=== PATIENT | female | born 1965 ===

== ENCOUNTER 2025-06-04 11:03 | Outpatient (AMB) | payer BC, SELFPAY ==
--- NOTE | 2025-06-04 11:14 | A.OFFVIS_ITS ---
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 She has longstanding history of palpitations. In 2014 she had echocardiography done at [facility] which was normal. She also had a Holter monitor in 2019 which was 24 hour Holter with [facility] which was negative for any arrhythmia. There were some premature atrial and ventricular complexes noted. From time to time s he gets tachycardia which is sudden onset. She is saying that this is usually self-limiting and breaks on its own. She has noticed her heart rates as high as 200s. She has a Rapportivedia device and has been trying to record some rhythms and a few times the reading was that she had atrial fibrillation although there are some recordings there labeled as potential AFib but there have a lot of artifact and appear to be all sinus tachycardia. She had event monitor in January through her primary care physician which we will get the records for. She is saying that she gets once a year episodes. She has taken metoprolol as needed before. She drinks 2 cups of coffee. No stimulant use otherwise. No syncope or chest discomfort. PENDING SALE TO [facility] Family History (Updated 06/04/25 @ 11:20 by Chika Felder CMA) Paternal Grandmother Heart attack Mother No problems noted. Social History (Updated 06/04/25 @ 11:20 by Chika Felder CMA) Alcohol intake: never Patient Tobacco Use Status: Never used Tobacco Review of Systems Const Denies chills, Denies fatigue, Denies fever(s), Denies frequent falls, Denies weakness, Denies weight gain and Denies weight loss ENT Denies dizziness Card Denies chest pain, Denies leg edema, Denies lightheadedness, Denies palpitations , Denies dyspnea, Denies dyspnea on exertion and Denies orthopnea Resp Denies cough, Denies dyspnea and Denies dyspnea on exertion GI Denies bloating and Denies change in bowel habits Musc Denies muscle weakness, Denies numbness and Denies tingling Neuro Denies dizziness, Denies frequent falls, Denies numbness, Denies tingling and Denies weakness Endo Denies fatigue and Denies palpitations Physical Exam Vital Signs: Last Vital Signs Pulse 83 06/04/25 11:18 BP 134/82 06/04/25 11:18 GENERAL APPEARANCE: in no acute distress, pleasant. NECK: no carotid bruit, no jugular venous distention. SKIN: no suspicious lesions, warm and dry. HEART: no murmurs, regular rate and rhythm. LUNGS: clear to auscultation bilaterally. ABDOMEN: soft, nontender. EXTREMITIES: no edema. PERIPHERAL PULSES: equal. NEUROLOGIC: No gross deficits, AAO X 3 Office Procedures EKG Details: Sinus rhythm 83 beats per minute, low voltage, QTC 415 milliseconds. [id number], Complete Assessment & Plan Assessment & Plan (1) Tachycardia: Code(s): R00.0 - Tachycardia, unspecified Category: Medical Plan [age] year female with longstanding history of palpitations and tachycardia. These happen approximately once a year and are quite infrequent. Clinical story sounds like supraventricular tachycardia. She previously had structurally normal heart. Previous monitoring also did not show any significant arrhythmia. She did a event monitor in January 2025. We will get records from her primary care physician as well as from [facility]. I have advised her to start taking atenolol 25 mg daily. It has the lowest side effect profile so she can try atenolol. In terms of further testing currently we discussed not to do any further testing. I have taught her vagal maneuvers and she will try to put cold water on her face/bear down in case she gets the tachycardia again. If she has recurrent episodes then we can refer her to EP. I discussed this with her but currently she feels these symptoms are quite infrequent. Thank you for allowing me to participate in the care of your patient. Please feel free to contact me if you have any questions. Medications: New atenolol 25 mg PO DAILY 30 tabs 3RF Coding Level of Care Code New Pt Level 4 (40423) Diagnoses Tachycardia R00.0 CPT Codes EKG - CPT: 36493-[id number], Complete ([id number])
[2025-06-04 11:18] VITALS: BP 134/82; PULSE 83
--- OUTSIDE RECORDS SUMMARY | 2025-06-04 13:10 | XMS_ITS | Clinical Summary ---
Author Organization [facility] Address [address] [place] [address] Care Team Providers Care Commercial Reporter Name Role Phone RobiYissel JACKELIN Primary Care Provider [phone] Allergies No known active allergies Medications No known medications Active Problems Problem Noted Date Diagnosed Date Cold intolerance 05/22/2013 Palpitations 05/22/2013 Dizziness 10/23/2012 Pain, joint, shoulder 10/23/2012 Anxiety 10/23/2012 Adjustment disorder 10/23/2012 Tobacco use 10/23/2012 Social History Tobacco Use Types Packs/Day Years Used Date Smoking Tobacco: Former Comments:: Comments Unknown Sex and Gender Information Value Date Recorded Sex Assigned at Not on file Legal Sex Female 2:33 AM EDT Gender Identity Not on file Sexual Orientation Not on file Last Filed Vital Signs Vital Sign Reading Time Taken Comments Blood Pressure 106/69 03/05/2015 2:14 PM EDT Pulse 86 03/05/2015 2:13 PM EDT Temperature 37.1 C (98.7 F) 05/22/2013 2:31 PM EST Respiratory Rate - - Oxygen Saturation 96% 03/05/2015 2:13 PM EDT Inhaled Oxygen Concentration - - Weight - - Height 165.1 cm (5' 5 ) 05/22/2013 2:31 PM EST Body Mass Index - - Plan of Treatment Health Maintenance Due Date Last Done Comments Cervical Cancer Screening 1967 Cologuard 1967 Colon Cancer Screening 1967 Colonoscopy 1967 FOBT / Fit Test 1967 HIV Screening 1967 HPV and Pap Smear 1967 Pap Smear 1967 Sigmoidoscopy 1967 Hepatitis B Vaccines (1 of 3 - 19+ 3-dose series) 09/01 Mammogram 04/16/2014 04/16/2012 Pneumococcal Vaccine: 50+ Years (1 of 1 - PCV) 018 Zoster Vaccines (2 of 2) 06/17/2022 04/22/2022 Alcohol/Substance Use Screening 07/03/2024 Influenza Vaccine (#1) 2025 DTaP,Tdap,and Td Vaccines (2 - Td or Tdap) 01/02/2029 01/02/2019 Procedures * Due to [place] [employer] law, this organization might not be sharing negative HIV tests. Procedure Name Priority Date/Time Associated Diagnosis Comments MAMMOGRAPHY Routine 04/16/2012 6:10 PM EDT from Last 3 Months or Most Recently Relevant to Health Maintenance Results * Due to [place] [employer] law, this organization might not be sharing negative HIV tests. * MAMMOGRAPHY (04/16/2012 6:10 PM EDT) Mammogram negative [facility] Anatomical Region Laterality Modality Other 04/16/2012 6:10 PM EDT us Historical Conversion Provider HEALTH MAINTENANC E Final Result from Last 3 Months or Most Recently Relevant to Health Maintenance Insurance BCBS OUT OF STATE PPO Care Teams Commercial Reporter Relationship Specialty Start Date End Date Yissel Rosenbaum NP [facility] [place] [address] PCP - General Family Medicine 04/12/22
--- OUTSIDE RECORDS SUMMARY | 2025-06-04 13:10 | XMS_ITS | Clinical Summary ---
Author Organization [facility] Address [address] [place] [address] Care Team Providers Care Spring Forger Name Role Phone Unknown Primary Care Provider [phone] Allergies No known active allergies Medications amoxicillin-clav ulanate (AUGMENTIN) 875-125 MG per tabletIndication s:Acute bacterial sinusitis Take 1 tablet by mouth 2 (two) times a day. 20 tablet 02/15/2022 Active Social History Tobacco Use Types Packs/Day Years Used Date Smoking Tobacco: Never Assessed Comments Unknown Sex and Gender Information Value Date Recorded Sex Assigned at Not on file Legal Sex Female 12:24 PM EDT Gender Identity Not on file Sexual Orientation Not on file Last Filed Vital Signs Vital Sign Reading Time Taken Comments Blood Pressure 135/92 02/15/2022 2:13 PM EDT Pulse 93 02/15/2022 2:13 PM EDT Temperature 36.8 C (98.3 F) 02/15/2022 2:13 PM EDT Respiratory Rate - - Oxygen Saturation 97% 02/15/2022 2:13 PM EDT Inhaled Oxygen Concentration - - Weight - - Height - - Body Mass Index - - Plan of Treatment Health Maintenance Due Date Last Done Comments Hepatitis C Virus Screening 1967 HIV Screening 09/20/1980 DTaP/Tdap/Td Vaccines (1 - Tdap) 09/20/1986 Hepatitis B Vaccines (1 of 3 - 19+ 3-dose series) 09/01 Pap Smear (Ages 21-65) 09/20/1988 Mammogram 2007 Colonoscopy 09/20/2012 Pneumococcal Vaccines 50+ (1 of 1 - PCV) 09/20/2017 Zoster (Shingles) Vaccine (1 of 2) 09/20/2017 Influenza Vaccine 01/31/2025 COVID-19 Vaccine (1 - 2024-25 season) 2025 RSV Vaccine 50 years and old er and Patients (1 - 1-dose 75+ series) 09/20/2042 Insurance BLUE CROSS OUT [facility] - [facility] Care Teams Spring Forger Relationship Specialty Start Date End Date Unknown Unknow Provider Address PCP - General 07/03/21
--- OUTSIDE RECORDS SUMMARY | 2025-06-04 13:10 | XMS_ITS | Clinical Summary ---
Author Organization [place] [address] [facility] Address [address] [place] [address] Phone Care Team Providers Care Maintenance Helper Name Role Phone Physician, No Pcp Primary Care Provider Unavaila ble Allergies No known active allergies Medications norethindrone (VIRGILIO,DERRICK,HE ATHER,MICRONOR) 0.35 mg tablet TAKE 1 TABLET BY MOUTH EVERY DAY 84 tablet 1 12/24/2024 Active estradioL (ESTRACE) 1 mg tablet Take 1 tablet (1 mg total) by mouth. at bedtime. Active metoprolol tartrate (LOPRESSOR) 25 mg tablet Take 1 tablet (25 mg total) by mouth 2 (two) times a day. Active Active Problems Problem Noted Date Diagnosed Date Atrial fibrillation ([facility] V24, [facility] V28) 0 01/30/2025 Hepatic cyst 01/30/2025 Cold intolerance 05/22/2013 Palpitations 05/22/2013 Adjustment disorder 10/23/2012 Anxiety 10/23/2012 Dizziness 10/23/2012 Pain, joint, shoulder 10/23/2012 Social History Tobacco Use Types Packs/Day Years Used Date Smoking Tobacco: Never Smokeless Tobacco: Never Alcohol Use Standard Drinks/Week Comments Not Currently 0 (1 standard drink = 0.6 oz pur e alcohol) Housing Instability Answer Date Recorde d Are you worried that in the next 2 months you may not have stable housing? No 01/29/2025 Food Access & Nutrition Answer Date Rec orded Do you have access to a vari ety of food including fruits and vegetables? Yes 01/29/2025 Access to Healthcare Answer Date Record ed Within the last 3 months, ho w many times did you visit the emergency department for your medical care? 0 01/29/2025 Health Literacy Answer Date Recorded How often do you need to hav e someone help you when you read instructions, pamphlets, or other written material from your doctor or pharmacy? Never 01/29/2025 Caregiver: How often do you need to have someone help you when you read instructions, pamphlets, or other written material from your doctor or pharmacy? Not on file 01/29/2025 Financial Risk Answer Date Recorded How hard is it for you to pa y for the very basics like food, housing, medical care, and air conditioning / heating? Patient declined 01/29/2025 Transportation Answer Date Recorded Has the lack of transportati on kept you from meetings, work, or from getting things needed for daily living? No Has the lack of transportati on kept you from medical appointments or from getting medications? No 01/29/2025 Social Isolation Answer Date Recorded How often do you feel lonely or isolated from th ose around you? Never 01/29/2025 Food Risk Answer Date Recorded Within the past 12 months we worried whether our food would run out before we got money to buy more. Never true 01/29/2025 Within the past 12 months th e food we bought just didn't last and we didn't have money to get more. Never true 01/29/2025 Dependent Care Answer Date Recorded Do you need help finding or paying for care for your loved ones. For example, salesperson children's shoes or elderly care for an older adult? No 01/29/2025 Education Answer Date Recorded Do you think completing more education or training, like finishing a GED, going to college, or learning a trade, would be helpful for you? Patient declined 01/29/2025 Employment and Income Answer Date Recor ded During the last four weeks, have you been actively looking for work? Patient declined 01/29/2025 Living Situation Answer Date Recorded What is your living situation? Unrecognized valu e 01/29/2025 Comments No Sex and Gender Information Value Date Recorded Sex Assigned at Not on file Legal Sex Female 8:44 AM EST Gender Identity Not on file Sexual Orientation Not on file Obstetrics History Para Term AB IAB SAB Ectopic Multiple Livin g Live Births 2 2 2 Date Outcome GA Total Labor Labor/2nd/3rd Weight Sex Type Anes PTL Debbie A1 A5 Name Clin Term M Vag-Spo nt Term F Vag-Spo nt Last Filed Vital Signs Vital Sign Reading Time Taken Comments Blood Pressure 140/74 01/30/2025 9:47 AM EDT Dec lined Wt Pulse 105 01/30/2025 9:47 AM EDT Temperature - - Respiratory Rate 16 01/30/2025 9:47 AM EDT Oxygen Saturation - - Inhaled Oxygen Concentration - - Weight - - Height 167.6 cm (5' 6 ) 01/30/2025 9:47 AM EDT Body Mass Index - - Plan of Treatment Health Maintenance Due Date Last Done Comments Colorectal Cancer Screening: Colonoscopy 1967 Hepatitis B Vaccines (1 of 3 - 19+ 3-dose series) 09/20/1986 Pneumococcal Vaccine: 50+ Years (1 of 1 - PCV) 09/20/2017 HIV Screening 08/02/2023 Hepatitis C Screening 08/02/2023 COVID-19 Vaccine ( - 2024-2 6 season) 2025 Influenza Vaccine (#1) 2025 Social Influencers of Health Screening 01/29/2026 01/29/2025 Breast Cancer Screening 02/04/2026 02/05/20 24, 02/05/2024, 04/11/2019 Cervical Cancer Screening: P ap Smear 10/22/2026 10/23/2023 DTaP,Tdap,and Td Vaccines (2 - Td or Tdap) 01/02/2029 01/02/2019 RSV Immunization Adult Patients (1 - 1-dose 75+ series) 09/20/2042 Zoster Vaccines Completed 12/02/2022, 04/22/2022 Depression Screening Completed 01/29/2025 HIB Vaccines Aged Out No longer eligi ble based on patient's age to complete this topic HPV Vaccines Aged Out No longer eligi ble based on patient's age to complete this topic Hepatitis A Vaccines Aged Out No long er eligible based on patient's age to complete this topic IPV Vaccines Aged Out No longer eligi ble based on patient's age to complete this topic MMR Vaccines Aged Out No longer eligi ble based on patient's age to complete this topic Meningococcal ACWY Vaccine Aged Out N o longer eligible based on patient's age to complete this topic Meningococcal B Vaccine Aged Out No l onger eligible based on patient's age to complete this topic RSV Immunization Patients Under 20 months Aged Out No longer eligible b ased on patient's age to complete this topic Varicella Vaccines Aged Out No longer eligible based on patient's age to complete this topic Procedures Procedure Name Priority Date/Time Associated Diagnosis Comments SCREENING MAMMOGRAPHY BI 2-VIEW BREAST INC CAD Routine 02/05/2024 9:32 AM EDT Encounter for gynecological examination (general) (routine) without abnormal findings PAP SMEAR Routine 10/23/2023 from Last 3 Months or Most Recently Relevant to Health Maintenance Results * SCREENING MAMMOGRAPHY BI 2-VIEW BREAST INC CAD (02/05/2024 9:32 AM EDT) Anatomical Region Laterality Modality Radiographic Chrissy ging 10/23/2023 2:09 PM EDT Narrative 02/05/2024 10:44 AM EDT This is a summary report. The complete report is available in the patient's medical record. If you cannot access the medical record, please contact the sending organization for a detailed fax or copy. Study: SCREENING MAMMOGRAPHY BI 2-VIEW BREAST INC CAD Technique: Bilateral full-field digital screening mammography is obtained and read in conjunction with computer aided detection. Tomosynthesis as well as 2D C-View imaging were obtained. Comparison: Prior mammogram on April 15, 2020 and April 16, 2019. Patient is status post ultrasound-guided left breast cyst aspiration on April 22, 2020. Breast composition: The breast tissue is heterogeneously dense, which may obscure small masses. Right breast: No suspicious masses, suspicious calcifications or other abnormalities are seen. Left breast: Regional calcifications in the upper outer quadrant are similar to prior study as far back as 2018. No suspicious masses, suspicious calcifications or other abnormalities are seen. IMPRESSION: Impression: Bilateral breasts: Benign, no specific mammographic evidence of malignancy. Normal interval follow-up is recommended in 12 months. BI-RADS: Category 2: Benign Procedure Note Jeff Núñez MD - 04/23/2024 This is a summary report. The complete report is available in thepatient's medical record. If you cannot access the medical record, pleasecontact the sending organization for a detailed fax or copy. Study: SCREENING MAMMOGRAPHY BI 2-VIEW BREAST INC CAD Technique: Bilateral full-field digital screening mammography is obtainedand read in conjunction with computer aided detection. Tomosynthesis aswell as 2D C-View imaging were obtained. Comparison: Prior mammogram on April 15, 2020 and April 16, 2019.Patient is status post ultrasound-guided left breast cyst aspiration onApril 22, 2020. Breast composition: The breast tissue is heterogeneously dense, which mayobscure small masses. Right breast: No suspicious masses, suspicious calcifications or otherabnormalities are seen. Left breast: Regional calcifications in the upper outer quadrant aresimilar to prior study as far back as 2018. No suspicious masses,suspicious calcifications or other abnormalities are seen. IMPRESSION: Impression: Bilateral breasts: Benign, no specific mammographic evidence ofmalignancy. Normal interval follow-up is recommended in 12 months. BI-RADS: Category 2: Benign us Radiology Results Historical MD SON XR PROCEDURE S Edited Result - Final * Pap smear (10/23/2023) 10/23/2023 Narrative HISTORICAL TESTING LAB RESULTING AGENCY - 10/25/2023 3:31 PM EDT [id number] THINPREP PAP, IMAGED: NEGATIVE FOR SQUAMOUS INTRAEPITHELIAL LESION AND MALIGNANCY YESICA TORO , KYRA(ASCP) (CASE ELECTRONICALLY SIGNED 10 25 2023) RESULT OF APTIMA HIGH RISK HPV ASSAY: HIGH RISK HPV: NEGATIVE (SEROTYPES 16,18,31,33,35,39,45,51,52,56,58,59,66,68) COMPLETED ON 2023-10-25 ADEQUACY: SATISFACTORY ENDOCERVICAL/TRANSFORMATION ZONE COMPONENT ABSENT. SOURCE: THINPREP PAP HPV ANY DX: REFLEX 16 AND 18, CERVICAL, IMAGED CLINICAL INFORMATION: HPV ANY DIAGNOSIS. MENOPAUSE, [Z01.419] us Staci Anderson DO LAB CYTOLOGY ORDERABLES Final Result HISTORICAL TESTING LAB RESULTING AGENCY from Last 3 Months or Most Recently Relevant to Health Maintenance [place] Care Teams Maintenance Helper Relationship Specialty Start Date End Date Physician, No Pcp PCP - General 01/29/25
--- OUTSIDE RECORDS SUMMARY | 2025-06-04 13:10 | XMS_ITS ---
Author Name [facility] Organization Unknown Encounters Encounter Type Encounter Reason Primary Diagnosis Location Date Ambulatory Acute sinusitis, unspecified [facility] 02/15/2022 Care Team Organization Name Specialty Phone Email Start Date End Da te [facility] 02/15/2022 02/15/2022 [facility] 02/15/2022
== END 2025-06-04 11:51 | disposition home or self-care (01) ==
LOC: HO.HCS 11:03
PROVIDERS: PCP Internal Medicine; Visit Provider Internal Medicine Cardiovascular Disease
DX: R00.0 Tachycardia, unspecified (principal)
CPT/HCPCS: 93010; 99204

== ENCOUNTER → 2025-06-04 11:03 | Outpatient (BNVA) | payer BC, SELFPAY | PROVIDERS: PCP Internal Medicine; Visit Provider Internal Medicine Cardiovascular Disease | DX: R00.0 Tachycardia, unspecified (principal) | CPT/HCPCS: 93005 ==